=== PATIENT | male | born 1990 | race Caucasian/White ===

== ENCOUNTER 2022-06-09 18:39 | Emergency (ER) | payer MEDICAID ==
[~2022-06-09] VITALS: Ht 172.7 cm; Wt 75.0 kg
[2022-06-09 18:49] VITALS: BP 165/121
== END 2022-06-10 01:00 | disposition left against medical advice (07) ==
LOC: ER 18:39
DX: Z53.21 Procedure and treatment not carried out due to patient leaving prior to being seen by health care provider (principal)